=== PATIENT | male | born 1990 | race Caucasian/White ===

== ENCOUNTER 2017-08-12 12:31 | Emergency (ER) | payer SELFPAY ==
[~2017-08-12] VITALS: Ht 182.9 cm; Wt 138.0 kg
[~2017-08-12 12:31] MED LIST: IBUP-1050 PO
[2017-08-12 12:57] VITALS: BP 131/84; TEMP 36.6; Ht 182.9 cm; Wt 138.0 kg
--- NOTE | 2017-08-12 14:07 | DIAGNOSTIC IMAGING REPORT ---
R FINGER(S) MIN 2 VIEWS ROUTINE HISTORY: 26 years-old Male pain, crush injury, DIP/distal phalanx middle finger acute right third finger pain status post crush injury COMPARISON: Right finger radiographs 10/18/2014 TECHNIQUE: 3 views of the right third finger FINDINGS: There is mild hyperflexion of the third PIP joint and mild flexion of the third DIP joint. There is no acute fracture, subluxation or significant degenerative changes identified. Soft tissues are unremarkable without opaque foreign body. IMPRESSION: No acute fracture or dislocation. The above report was generated using voice recognition software. It may contain grammatical, syntax or spelling errors. Electronically signed by: Murali Hinojosa M.D. 08/12/2017 2:05 PM Dictated Date/Time: 08/12/2017 2:03 PM
[2017-08-12] MEDS ORDERED: GELATIN SPONGE 12-7MM EXT STA (14:16)
[2017-08-12] MEDS ORDERED: CEPH500C PO (14:36)
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
[2017-08-12 14:47] VITALS: PULSE 63; O2SAT 99
== END 2017-08-12 14:48 | disposition home or self-care (01) ==
LOC: C.EDB 12:33 → C.EDD 14:48
DX: S60.412A Abrasion of right middle finger, initial encounter (principal); S60.031A Contusion of right middle finger without damage to nail, initial encounter; W23.1XXA Caught, crushed, jammed, or pinched between stationary objects, initial encounter; F17.200 Nicotine dependence, unspecified, uncomplicated

== ENCOUNTER 2017-10-13 01:49 | Emergency (ER) | payer OTHER ==
[~2017-10-13] VITALS: Ht 185.4 cm; Wt 142.0 kg
[2017-10-13 02:00] VITALS: TEMP 36.7; Ht 185.4 cm; Wt 142.0 kg
[2017-10-13 02:30] LABS: BASO % 0.5 %; BASO ABS # 0.05 K/uL (0-0.2); EOS % 3.9 %; EOS ABS # 0.36 K/uL (0-0.5); HEMATOCRIT 44.5 % (42-52); HEMOGLOBIN 16.2 g/dL (14.0-18.0); IG# 0.02 K/uL (0.00-0.02); LYMPH % 24.6 %; LYMPH ABS # 2.27 K/uL (1.2-3.4); MEAN CELL VOLUME 87.9 fL (80-100); MEAN CORPUSCULAR HGB CONC 36.4 g/dl (32-36); MEAN PLATELET VOLUME 9.7 fL (7.4-10.4); MONO % 6.5 %; NEUT % 64.3 %; NEUT ABS # 5.92 K/uL (1.4-6.5); PLATELET COUNT 220 K/uL (130-400); RED CELL DISTRIBUTION WIDTH CV 12.5 % (11.5-14.5); RED CELL DISTRIBUTION WIDTH SD 39.6 fL (36.4-46.3); WHITE BLOOD COUNT 9.22 K/uL (4.8-10.8)
[2017-10-13] MEDS ORDERED: OPTIRAY 320 IV PRN (02:30)
[2017-10-13 02:47] LABS: ALBUMIN 4.2 gm/dl (3.4-5.0); ALT/SGPT 44 U/L (12-78); AST/SGOT 34 U/L (15-37); BLOOD UREA NITROGEN 16 mg/dl (7-18); CALCIUM 8.6 mg/dl (8.5-10.1); CARBON DIOXIDE 25 mmol/L (21-32); GLUCOSE 101 mg/dl (70-99); POTASSIUM 3.7 mmol/L (3.5-5.1); SODIUM 140 mmol/L (136-145)
[2017-10-13 02:52] LABS: ALKALINE PHOSPHATASE 99 U/L (45-117); TOTAL PROTEIN 7.2 gm/dl (6.4-8.2)
[2017-10-13 04:01] VITALS: BP 124/70
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
[2017-10-13 04:19] VITALS: PULSE 63; O2SAT 96
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
== END 2017-10-13 04:32 | disposition home or self-care (01) ==
LOC: C.EDB 01:51 → C.EDA 04:32
DX: S09.90XA Unspecified injury of head, initial encounter (principal); S29.9XXA Unspecified injury of thorax, initial encounter; S39.91XA Unspecified injury of abdomen, initial encounter; S60.511A Abrasion of right hand, initial encounter; S69.81XA Other specified injuries of right wrist, hand and finger(s), initial encounter; S00.01XA Abrasion of scalp, initial encounter; V43.02XA Car driver injured in collision with other type car in nontraffic accident, initial encounter; Y92.410 Unspecified street and highway as the place of occurrence of the external cause; F17.210 Nicotine dependence, cigarettes, uncomplicated